=== PATIENT | female | born 2000 ===

== ENCOUNTER → 2022-05-17 | Outpatient (CLI) | payer SELFPAY ==
[2022-05-17 16:55] LABS: Source, Urine Voided
[2022-05-17 17:34] LABS: Appearance, Urine Clear (Clear); Bilirubin, Urine Neg (Neg); Blood, Urine Neg (Neg); Color, Urine Yellow (P-Yellow); Glucose Qualitative, Urine Neg (Neg); Ketones, Urine Neg (Neg); Leukocyte Esterase, Urine Neg (Neg); Nitrite, Urine Neg (Neg); Protein, Urine Neg (Neg); Urobilinogen, Urine NORM (Normal)
[2022-05-18 10:03] LABS: Candida species (DNA Probe) Negative (NEGATIVE); G. vaginalis (DNA Probe) Negative (NEGATIVE); T. vaginalis (DNA Probe) Negative (NEGATIVE)
[2022-05-19 01:09] LABS: CHLAMYDIA TRACHOMATIS, NAA Negative (Negative)
== END | disposition home or self-care (01) ==
LOC: LAB SHORT 13:30
PROVIDERS: Registered Nurse
DX: Z72.51 High risk heterosexual behavior (principal)
CPT/HCPCS: 81003; 87480; 87491; 87510; 87591; 87660; G0123